=== PATIENT | female | born 1955 | race Caucasian/White ===

== ENCOUNTER 2018-04-18 19:05 | Inpatient (IN) | payer MEDICARE ==
[~2018-04-18] VITALS: Ht 167.6 cm; Wt 99.8 kg
[2018-04-18] MEDS ORDERED: LORAZEPAM 2 MG/1 ML VIAL ONE (19:24)
[2018-04-18] MEDS ORDERED: OLANZAPINE 10 MG VIAL IM ONE ×2 (19:24→19:30)
[2018-04-18] MEDS ORDERED: LORAZEPAM 2 MG/1 ML VIAL IM ONE (19:30)
--- NOTE | 2018-04-18 19:34 | NUR ---
PT BIB PRIVATE AMBULANCE FROM [facility] FOR REHAB MEDICINE ER. PT IS ON 5150 HOLD FOR DTO. PT SELF-AMBULATED TO BED WITHOUT DIFFICULTY. PT DOES NOT APPEAR TO BE IN ANY ACUTE DISTRESS. PT REFUSING VS CHECK, LAB DRAW, BEING NONCOMPLIANT AND AGITATED.
--- NOTE | 2018-04-18 19:35 | NUR ---
PT MEDICATED ORDERED BY . PT STILL AGITATED AND YELLING, BUT COOPERATING. WILL CONTINUE TO MONITOR.
[2018-04-18] MEDS ORDERED: RISP1TAB7 PO (19:40)
[2018-04-18 19:58] LABS: CREATININE 0.8 mg/dL (0.6-1.3); POTASSIUM 3.4 mmol/L (3.5-5.1)
--- NOTE | 2018-04-18 20:30 | NUR ---
GAVE ADMITTING REPORT TO U BOB. PT WILL BE ADMITTED UNDER THE CARE OF DR. SANCHEZ/PRATEEK. Addendum: 04/18/18 at 2054 by MANUELITO REPORT GIVEN TO BOB FOLEY.
--- NOTE | 2018-04-18 20:50 | NUR ---
PT WAS BROUGHT IN TO UNIT VIA WHEELCHAIR. ADMITTED TO U UNDER DR. CHANDRA/ DR. ZENG. A/O X2. INITIATE ADMISSION ASSESSMENT. UNABLE TO OBTAIN MOST INFORMATIONS DUE TO PT IS VERY NON COOPERATIVE. PT REFUSED SKIN CHECK, REFUSED TO SIGN ADMISSION PAPER WORKS. EASILY IRRITABLE WHEN BEING ASKED BY STAFF. DR. CHANDRA WAS HERE WITH NEW ORDERS. BELONGING LISTS REVIEWED. Addendum: 04/18/18 at 2338 by DAMIAN GALLARDO RN PT REFUSED V/S TO BE TAKEN. NON COMPLIANT.
[2018-04-18] MEDS ORDERED: TEMAZEPAM 7.5 MG CAPSULE PO PRN (21:30)
[2018-04-18] MEDS ORDERED: ACETAMINOPHEN 325 MG TABLET PO PRN (21:30)
[2018-04-18] MEDS ORDERED: MAGNESIUM HYDROXIDE 30 ML LIQUID UDC PO PRN (21:30)
[2018-04-18] MEDS ORDERED: MAG HYDROX/AL HYDROX/SIMETH 30 ML LIQUID UDC PO PRN (21:30)
--- NOTE | 2018-04-19 06:45 | NUR ---
PT SLEPT 8.0 HRS. STAYED IN SECLUSION ROOM, PT DID NOT WANT TO STAY IN HER ROOM LAST NIGHT. HAD SHOWER IN AM. AMBULATORY. IN ACTIVITY ROOM AT THIS TIME. PT GETS IRRITATED WHEN ASKED, GETS MAD EASILY. MONITORED CLOSELY.
--- NOTE | 2018-04-19 11:50 | NUR ---
Firearms Report: Vending Machine Mechanic completed and submitted [employer] Firearms Report for 5150 DTO certification.
[2018-04-19] MEDS: DIVALPROEX 250 MG TABLET.DR PO SCH ×2 (13:00→17:00)
[2018-04-19] MEDS: risperiDONE 1 MG TABLET PO SCH ×2 (13:16→20:49)
[2018-04-19] MEDS ORDERED: LORAZEPAM 2 MG/1 ML VIAL IM ONE (23:20)
[2018-04-19] MEDS ORDERED: HALOPERIDOL LACTATE 5 MG/1 ML VIAL IM ONE (23:20)
[2018-04-19] MEDS ORDERED: diphenhydrAMINE 50 MG/1 ML VIAL IM ONE (23:20)
--- NOTE | 2018-04-20 01:30 | NUR ---
Pt WAS BEING INTRUSIVE, AGITATED, ATTENTION SEEKING, CONSTANTLY NEEDING REDIRECTION, BECAME VERBALLY ABUSIVE AND THREATENING TO STAFF WHEN HER DEMANDS WERE NOT MET. MULTIPLE NON-PHARMACOLOGICAL INTERVENTIONS ATTEMPTED BUT WERE UNSUCCESSFUL. DR. CHANRDA WAS CALLED AND NOTIFIED OF Pt BEHAVIOR, RECEIVED ONE TIME ORDER OF HALDOL 5 MG IM, ATIVAN 2 MG IM, AND BENADRYL 25 MG IM. UNIT STAFF AND HOSPITAL SECURITY WERE PRESENT AND ASSISTED DURING INJECTION ADMINISTRATION. CHEMICAL RESTRAINT PROTOCOL WAS INITIATED, Pt WAS MONITORED CLOSELY FOR SAFETY. Pt CONTINUED TO BE BELLIGERENT AND VERBALLY ABUSIVE AFTER IM INJECTION. Pt CAME TO NURSING STATION MULTIPLE TIMES BEING INTRUSIVE WHEN NURSE WAS ATTENDING TO ANOTHER Pt. CONSTANT REDIRECTION WAS NEEDED FOR 30 MINUTES, Pt WAS PROVIDED A SANDWICH, REFUSED VITAL SIGNS. Pt WENT TO BED AFTER FINISHING SNACK. IN STABLE CONDITION, NO DISTRESS NOTED. Pt IS NOW SLEEPING AND RESTING COMFORTABLY. WILL CONTINUE TO MONITOR Pt BEHAVIOR CLOSELY TO AVOID ESCALATION AND INJURY.
[2018-04-20 07:30] VITALS: BP 169/101
[2018-04-20] MEDS: DIVALPROEX 250 MG TABLET.DR PO SCH ×3 (09:00→17:00)
[2018-04-20] MEDS: risperiDONE 1 MG TABLET PO SCH ×2 (11:44→20:39)
--- NOTE | 2018-04-20 16:06 | NUR ---
Initial Discharge Note: Patient currently lives alone in a [address] [place] [address]] that is owned by her parents. Patient states she does not want to go back there because her "landlord" is going to kick her out. Patient also states that her complex is a "drug ring". Patient, however, appears to not be suitable to live on her own at this time and would need appropriate placement. Patient has no Medicare SNF days left. area field worker has spoke with Josephine [[phone]], at [facility], who states that transferring the patient to [facility] may be an option. area field worker will coordinate with Josephine once patient is on a 5250 hold and see if lateral transfer is possible. Patient salesperson flowers(s) is/are Juan Jose Leonardo [[phone]], patients parents.
[2018-04-21] MEDS: risperiDONE 1 MG TABLET PO SCH ×2 (08:59→21:00)
[2018-04-21] MEDS: DIVALPROEX 250 MG TABLET.DR PO SCH ×3 (09:00→17:00)
[2018-04-21] MEDS ORDERED: CLONIDINE HCL 0.1 MG TABLET PO PRN (13:30)
[2018-04-21] MEDS ORDERED: OLANZAPINE 10 MG VIAL IM ONE ×2 (20:00→20:45)
--- NOTE | 2018-04-21 20:55 | NUR ---
GPS: PATIENT IS OUT OF CONTROL. YELLING AT STAFF. BANGING ON THE DOOR. MD CALLED. ZYPREXA 5 MG IM X1 GIVEN FOR OUT OF CONTROL BEHAVIOR. CONTINUE MONITORING FOR SAFETY.
--- NOTE | 2018-04-21 22:00 | NUR ---
CHEMICAL RESTRAINT NOTE: Pt UNCOOPERATIVE, ARGUMENTATIVE, OPPOSITIONAL, YELLING, SCREAMING, AND THREATENING STAFF. DR HOLLINGSWORTH NOTIFIED OF Pt BEHAVIOR AND ORDERED ZYPREXA 5mg IM. Pt WAS THEN RESPONDED TO REDIRECTION AND CALMED FOR ABOUT 45 MINUTES. INITIAL ORDER WAS CANCELLED. AFTER 45 MINUTES, THE Pt BECAME VERBALLY ABUSIVE TOWARD STAFF, AND YELLING OBSCENITIES. ORDER WAS RE-STARTED AND INITIATED @ 2045. SECURITY WAS CALLED FOR STAND BY TMD TEACHER, HOWEVER Pt WAS COOPERATIVE WITH IM PROCESS, NO HANDS ON BY ANCILLARY STAFF DURING IM ADMINISTRATION. Pt NOW CALM AND RESTING AT THIS TIME, IN NO ACUTE PHYSICAL DISTRESS. WILL CONTINUE TO CLOSELY MONITOR.
--- NOTE | 2018-04-22 05:56 | NUR ---
GPS: REMAIN UNCOOPERATIVE THROUGH THE SHIFT. ZYPREXA 5 MG IM GIVEN AND EFFECTIVE. SLEPT 4:30 HRS THROUGH THE NIGHT. CONTINUE MONITORING FOR SAFETY.
[2018-04-22] MEDS: risperiDONE 1 MG TABLET PO SCH ×3 (08:52→20:25)
[2018-04-22] MEDS: DIVALPROEX 250 MG TABLET.DR PO SCH ×3 (08:53→16:40)
--- NOTE | 2018-04-22 08:58 | NUR ---
NURSING: PATIENT TOOK ONLY 1 TABLET OF RISPERDAL OUT OF 3 MGX AND REFUSED DEPAKOTE
--- NOTE | 2018-04-22 13:37 | NUR ---
GPS: Nursing Notes: Thought Disorder: Patient is awake and responding to her name, poor anger management, resistant with nursing care, refusing her medications, taking only Risperdal 1mg PO and not taking the full dose of Risperdal 3mg, when questioned by staff, patient cover her ears and became agitated toward staff, "Get away..", responding to internal stimuli by mumbling to self, unable to formulate a plan for self care, continue with treatment plan.
--- NOTE | 2018-04-22 21:14 | NUR ---
Received pt to care, she was laying in her bed rambling, responding to internal stimuli, pt is labile, uncooperative, attention seeking, loud, guarded, pt refused a snack, pt also refused to take her risperidone 3 mg (1 mg per pill), she would only take 1 pill which was 1 mg, pt states that it is what she takes at home. Pt is still very psychotic. I will continue to monitor.
--- NOTE | 2018-04-23 06:18 | NUR ---
Pt did not sleep all night, pt was erratic, talking to herself, hyperverbal, pacing, aggressive, yelling, responding to internal stimuli, labile, belligerent, name calling, refused medication, refused to shower, pt states that she is not schizophrenic, pt refused her labs this morning. Pt is still highly psychotic.
[2018-04-23] MEDS: risperiDONE 1 MG TABLET PO SCH ×2 (08:24→21:00)
[2018-04-23] MEDS: DIVALPROEX 250 MG TABLET.DR PO SCH ×3 (08:24→16:02)
--- NOTE | 2018-04-23 15:53 | NUR ---
GPS: Nursing Notes: Thought Disorder: Patient is awake and responding to her name, unpredictable behavior, poor anger management, responding to internal stimuli by shouting and mumbling to self, verbal abusive toward staff, overly disruptive by shouting in the TV room, invading personal space of staff and security, stating "What a fuck are going to do... 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
--- NOTE | 2018-04-23 18:45 | NUR ---
GPS: Nursing Notes: Severe Agitation: Patient is irritable, labile, unpredictable behavior, overly disruptive by shouting, verbal abusive, threatening staff, stating racial statements toward staff, slamming door, closing her door, verbal abusive toward her roommate, "Fuck you Malian... Get your dave away from me..", loud and angry affect, labile, unable to be redirected, restless, security was call, patient scratched staff on the left arm, trying to hit staff, Dr. Purcell covering psychiatrist for Dr. Faria was called, continue to monitor patient for safety, continue with treatment plan.
[2018-04-23] MEDS ORDERED: OLANZAPINE 10 MG VIAL IM ONE (19:05)
--- NOTE | 2018-04-23 20:00 | NUR ---
CHEMICAL RESTRAINT NOTE: RECEIVED REPORT FROM DAY SHIFT NURSE, JUSTIN, TO ADMINISTER ZYPREXA 5 MG IM INJECTION PER DR. HOLLINGSWORTH'S ORDER. Pt HAS BEEN VERBALLY ABUSIVE AND THREATENING STAFF, STATING RACIAL STATEMENTS, SLAMMING DOOR, LABILE, LOUD, AND ANGRY. UPON ASSESSMENT, Pt CONTINUES TO BE AGITATED, CURSING AND YELLING AT NURSE, STATING, "GO FUCK YOURSELF" TO NURSE WHILE NURSE INTRODUCED HIMSELF TO PATIENT. IM INJECTION ADMINISTERED WITH ASSISTANCE FROM OTHER NURSING STAFF AND SECURITY. CHEMICAL RESTRAINT PROTOCOL AND MONITORING HAS BEEN INITIATED, WILL CONTINUE TO MONITOR Pt BEHAVIOR CLOSELY.
[2018-04-24] MEDS ORDERED: LORAZEPAM 2 MG/1 ML VIAL IM ONE (01:35)
[2018-04-24] MEDS ORDERED: HALOPERIDOL LACTATE 5 MG/1 ML VIAL IM ONE (01:35)
[2018-04-24] MEDS ORDERED: diphenhydrAMINE 50 MG/1 ML VIAL IM ONE (01:35)
--- NOTE | 2018-04-24 04:00 | NUR ---
CHEMICAL RESTRAINT NOTE: PREVIOUS IM INJECTION WAS NOT EFFECTIVE. Pt CONTINUED TO BE AGGRESSIVE, AGITATED, LABILE, VERBALLY ABUSIVE AND THREATENING TO STAFF AND OTHER PATIENTS. UNABLE TO BE REDIRECTED BY NURSING STAFF, CONSTANTLY COMING UP TO NURSING STATION DEMANDING FOR "A BIGGER SHOT THAT WILL KNOCK ME OUT. GIVE ME FENTANYL OR PROPOFOL. CALL THE DOCTOR NOW, RAPHAEL." Pt WAS INFORMED THAT FENTANYL AND PROPOFOL WILL NOT BE ORDERED AND SHE WILL NOT BE RECEIVING THESE TONIGHT. Pt BEGAN YELLING AT OTHER PATIENTS IN THE ROOM NEXT TO HER AND SLAMMING THE DOORS. AT 0130, DR. HOLLINGSWORTH, ON-CALL PSYCHIATRIST COVERING FOR DR. CHANDRA, WAS CALLED AND NOTIFIED OF Pt BEHAVIOR AND RECOMMENDATION. RECEIVED ORDER FOR HALDOL 5 MG, ATIVAN 1 MG, AND BENADRYL 25 MG, IM INJECTIONS ONCE. SECURITY WAS CALLED FOR ASSISTANCE WITH IM INJECTION. Pt WAS INITIALLY RECEPTIVE TO IM INJECTION BUT BECAME AGITATED PRISON THROUGH IM ADMINISTRATION WHICH REQUIRED HANDS-ON INTERVENTION BY NURSING STAFF AND SECURITY TO PREVENT INJURY TO PATIENT AND STAFF. CHEMICAL RESTRAINT PROTOCOL AND MONITORING INITIATED, Pt CONTINUED TO BE AGITATED, VERBALLY ABUSIVE AND THREATENING AFTER RECEIVING THE SHOT BUT HAS NOT BEEN OUT OF HER ROOM OR BED. Pt FELL ASLEEP AROUND 0330, NO DISTRESS NOTED, Pt IN STABLE CONDITION. WILL CONTINUE TO MONITOR Pt BEHAVIOR CLOSELY.
[2018-04-24] MEDS: risperiDONE 1 MG TABLET PO SCH ×2 (09:00→11:27)
[2018-04-24] MEDS: DIVALPROEX 250 MG TABLET.DR PO SCH ×3 (09:00→16:31)
--- NOTE | 2018-04-24 09:30 | NUR ---
GPS Nursing note: pt. refused partially resperidol, only took 1 mg this AM. Addendum: 04/24/18 at 1130 by KANG REEVES RN per pt. preference stated "I only need 1 mg, i don't need 3 mg."
--- NOTE | 2018-04-24 10:26 | NUR ---
Discharge Planning: oyster bed worker followed-up with Josephine [[phone]], family service caseworker, at [facility] who offered assistance in transferring [facility] to [facility] in [place] where patient could receive more extensive psychiatric treatment. Per Josephine, she cannot guarantee when and if a female bed becomes available, but she requested patient packet be faxed [[phone]] to her for review. oyster bed worker faxed patient packet. oyster bed worker also received return phone call from Azeb [[phone]], [facility] health social work professor. Azeb has been working with patient and patient's family for a few months. Azeb requested to send initial paperwork for conservatorship, however, health social work professor explained that [facility] does not start the conservatorship process due to time restraints. oyster bed worker will inform Azeb of if and when patient is transferred to [facility].
--- NOTE | 2018-04-24 12:17 | NUR ---
Discharge Planning: castables worker received phone call from Oscar [[phone]], client coordinator for GPS, at [facility] who states that she has spoken with Topher at [facility] mobile crisis team who has agreed to take responsibility for providing transportation (via [facility] Crisis Team) for the patient when she is ready to discharge. castables worker will continue to update Oscar as needed on the status of patient discharge plan.
--- NOTE | 2018-04-24 14:51 | NUR ---
GPS: Nursing Notes: Severe Agitation: Patient overly disruptive by constantly shouting, verbal abusive toward staff, shouting racial statements, "You are a fucking nigger maid..", threatening the psychiatrist, restless behavior, unable to be redirected, "Bastard..I am going to kill you..", loud and pressured speech, poor anger management, clinching her fists toward staff, banging on the nursing station, redirected during shift, but unable to follow directions, "You bastard Romanian....", constantly screaming, Dr. Faria is present during aggressive behavior, order: Haldol 5mg IM, Ativan 2mg IM and Benadryl 25mg IM X1 STAT, respiration is 18, continue to monitor for safety, continue with treatment plan.
[2018-04-24] MEDS ORDERED: diphenhydrAMINE 50 MG/1 ML VIAL IM STA (14:57)
[2018-04-24] MEDS ORDERED: LORAZEPAM 2 MG/1 ML VIAL IM STA (14:57)
[2018-04-24] MEDS ORDERED: HALOPERIDOL LACTATE 5 MG/1 ML VIAL IM STA (14:57)
--- NOTE | 2018-04-24 15:19 | NUR ---
GPS: Nursing Notes: Chemical Restraint: Patient continue to be unpredictable, labile, constantly shouting, verbal abusive, using profanities, toward staff and psychiatrist, using racial statement toward staff, overly disruptive by shouting, screaming to unseen others, threatening staff, banging on the nursing station, setting limits, but continue to unable to be redirected, restless behavior, Dr. Faria ordered: Haldol 5mg IM, Ativan 2mg IM and Benadryl 25mg IM X1 STAT, continue to monitor for safety, continue with treatment plan.
--- NOTE | 2018-04-24 15:45 | NUR ---
GPS: Nursing Notes: Reassessment of Chemical Restraint: Patient continue be shouting profanities to unseen others, poor anger management, gets easily irritable when redirected, using racial statements toward staff, IM medications were helpful, patient shouting, but with less intensity, respiration is 18, continue to monitor for safety, continue with treatment plan.
[2018-04-25] MEDS: DIVALPROEX 250 MG TABLET.DR PO SCH ×3 (08:37→17:00)
[2018-04-25] MEDS: risperiDONE 1 MG TABLET PO SCH (08:38)
[2018-04-25] MEDS: BENZTROPINE MESYLATE 1 MG TABLET PO SCH (17:00)
[2018-04-25] MEDS: HALOPERIDOL 5 MG TABLET PO SCH (17:00)
[2018-04-25] MEDS ORDERED: HALOPERIDOL LACTATE 5 MG/1 ML VIAL IM PRN (17:00)
[2018-04-25] MEDS ORDERED: BENZTROPINE MESYLATE 2 MG/2 ML AMPUL IM PRN (17:00)
[2018-04-25] MEDS: TEMAZEPAM 15 MG CAPSULE PO PRN (22:50)
[2018-04-26 07:30] VITALS: BP 155/110
[2018-04-26] MEDS: HALOPERIDOL 5 MG TABLET PO SCH ×3 (09:10→18:11)
[2018-04-26] MEDS: BENZTROPINE MESYLATE 1 MG TABLET PO SCH ×3 (09:10→18:12)
[2018-04-26] MEDS: DIVALPROEX 250 MG TABLET.DR PO SCH ×3 (09:10→18:10)
--- NOTE | 2018-04-26 11:08 | NUR ---
Discharge Planning: structural steel ironworker attempted to follow up with Josephine [[phone]], child welfare caseworker, at [facility] to check-in about potential transfer of patient to [facility]. structural steel ironworker was unable to reach Josephine and left a voicemail requesting call back.
--- NOTE | 2018-04-26 15:30 | NUR ---
Activity Group Note: Patients were asked to draw a picture of Fall and to join in discussion of what Fall means to them or any memories they may have of the Fall season. Subjective: "Let me see your picture. Hold it up!" [Patient made this statement to another peer in group] Objective: Patient was very eager to participate in activity and appeared to enjoy herself and company of peers. Patient engaged well with peers and provided encouragement to others on what they were drawing. Patient would become irritated when other staff walked in room and call out "that's rude". Assessment: Patient needs help with self-soothing exercises when unable to control surroundings. Plan: Encourage group attendance as scheduled. shop worker will continue to provide encouragement and support in helping patient engage in self-soothing strategies when needed.
--- NOTE | 2018-04-27 01:45 | NUR ---
GPS: Remains awake at this time. Refused Restoril 15mg PO when offered for insomnia. Pt.is quiet and inside her room at this time. Quiet environment provided to facilitate sleep. No agitation noted. Safety emphasized.
[2018-04-27] MEDS: HALOPERIDOL 5 MG TABLET PO SCH ×3 (08:29→17:09)
[2018-04-27] MEDS: DIVALPROEX 250 MG TABLET.DR PO SCH ×4 (08:40→17:10)
[2018-04-27] MEDS: BENZTROPINE MESYLATE 1 MG TABLET PO SCH ×4 (08:40→17:09)
[2018-04-27] MEDS ORDERED: HALOPERIDOL 5 MG TABLET PO SCH (21:00)
[2018-04-27] MEDS ORDERED: HALOPERIDOL LACTATE 5 MG/1 ML VIAL IM SCH (21:00)
--- NOTE | 2018-04-28 06:19 | NUR ---
GPS: Pt.now awake in the tv room at this time. Continues to be loud at times,easily agitated,intrusive and with disorganized thoughts. Limit setting provided prn. Safety emphasized. Will continue to monitor.
[2018-04-28] MEDS ORDERED: HALOPERIDOL LACTATE 5 MG/1 ML VIAL IM SCH (09:00)
[2018-04-28] MEDS ORDERED: BENZTROPINE MESYLATE 1 MG TABLET PO SCH (09:00)
[2018-04-28] MEDS ORDERED: HALOPERIDOL 5 MG TABLET PO SCH ×2 (09:00→13:00)
[2018-04-28] MEDS: DIVALPROEX 250 MG TABLET.DR PO SCH ×3 (09:00→17:00)
[2018-04-28] MEDS ORDERED: BENZTROPINE MESYLATE 2 MG/2 ML AMPUL IM SCH (09:00)
[2018-04-28] MEDS ORDERED: BENZTROPINE MESYLATE 2 MG/2 ML AMPUL IM PRN (12:10)
[2018-04-28] MEDS ORDERED: HALOPERIDOL LACTATE 5 MG/1 ML VIAL IM PRN ×2 (12:12→12:13)
[2018-04-28] MEDS: BENZTROPINE MESYLATE 1 MG TABLET PO SCH ×2 (13:29→18:24)
--- NOTE | 2018-04-28 16:12 | NUR ---
Activity Group Note: GOAL: Patient will actively participate in the group activity of the day or relax in the activity room with fellow patients. INTERVENTION: Professor Of Vegetable Science invited patient to participant in the arts and craft group activity held at 2 -2:45 pm in the activity room. RESPONSE: Patient expressed interest in participating in arts and crafts. Patient worked and competed her mask that she had been painting during the entire 45-minute time frame. Patient had minimal interaction with peers and did well. Patient stated that she wished she could paint all day because she enjoys it so much. Patients mood was somewhat labile but overall very cooperative during the activity. PLAN: Patient stated that she enjoys arts and crafts and would like to keep participating when possible. marketing information coordinator will invite patient to attend the next group activity that is held.
[2018-04-28] MEDS: VALPROIC ACID 250 MG/5 ML LIQUID UDC PO SCH (20:52)
--- NOTE | 2018-04-29 02:52 | NUR ---
Received pt to care. Pt up walking around, rolling her eyes, arguing with the doctor, name calling and demeaning him, pt later went to sit in the day room and she was quiet listening to music, pt asked for cranberry juice, conventional mortgage underwriter poured liquid med in her drink per MD instructions but pt was suspicious and refused to drink the juice and poured it in the sink. Pt states "I know all your tricks". Pt still hyperverbal and responding to internal stimuli. I will continue to monitor.
[2018-04-29] MEDS: HALOPERIDOL 5 MG TABLET PO SCH ×3 (08:32→21:20)
--- NOTE | 2018-04-29 08:35 | NUR ---
Gps/Aircraft Cylinder Mechanic-Refused automatic blood pressure, requesting be b/p checked manually, was 180/104 left arm, offered to take clonidine 0.1 mg po 1 tab. pt. claimed she will not take any blood pressure mediciations, reviewed with patient meds. and importance of being compliance with her meds. staff are here to take care of her ,help in her recovery.Patient laughing ,mocking at the staff ,rudeness noted. Continue to monitor behavior .
[2018-04-29] MEDS: VALPROIC ACID 250 MG/5 ML LIQUID UDC PO SCH ×2 (09:00→21:00)
[2018-04-29] MEDS ORDERED: HALOPERIDOL LACTATE 5 MG/1 ML VIAL IM PRN (09:00)
--- NOTE | 2018-04-29 15:38 | NUR ---
Gps/Property Inspector- Patient kept refusing to have them check her blood pressure , informed patient the need to have her vital signs checks , r/t to her elevated b/p also refusing to take prn b/p meds. pt. educ. re- blood pressure, refused to listen, mocking staff .
--- NOTE | 2018-04-29 15:48 | NUR ---
Gps/Despatching And Receiving Clerk- Noted patient door is closed, instructed patient not to closed her door, she claimed one of the staff here smells and she cannot stand it, making faces pretending gagging . Re offered to have her blood pressure check, refused , stated" go back to [place] where you belong".
[2018-04-29] MEDS: LORAZEPAM 1 MG TABLET PO PRN (19:49)
--- NOTE | 2018-04-30 05:35 | NUR ---
Received pt to care, pt was laying in bed, when I said hello to the pt she was short and dismissive. Pt noted responding to internal stimuli, Pt yelling and talking to herself. Pt given PRN ativan, pt complied with taking the med. Pt also complied with taking haldol, pt refused depakote liquid saying that "it is for people with migraines", marketing writer tried to explain the med to the pt but she did not want to discuss. Pt slept most of the night.
[2018-04-30] MEDS: VALPROIC ACID 250 MG/5 ML LIQUID UDC PO SCH ×2 (08:40→21:00)
[2018-04-30] MEDS: HALOPERIDOL 5 MG TABLET PO SCH ×3 (08:40→21:15)
--- NOTE | 2018-04-30 08:47 | NUR ---
Gps/Letter Of Credit Document Examiner- Patient upset when awaken to for medication administration, continue mocking staff, making faces and weird sounds ,loud , noted patient talking to self . Suspicious, refusing to get water from a cup. Refusing depakene , claimed she does not need it and will not take it, claimed she does not have seizure, informed other indications of the med. claimed she does not want to hear .Instructed to keep her door open.
[2018-04-30] MEDS: TEMAZEPAM 15 MG CAPSULE PO PRN (23:12)
[2018-05-01] MEDS: VALPROIC ACID 250 MG/5 ML LIQUID UDC PO SCH (09:00)
[2018-05-01] MEDS: HALOPERIDOL 5 MG TABLET PO SCH ×2 (09:44→14:41)
--- NOTE | 2018-05-01 10:45 | NUR ---
Discharge Planning Note: Spoke with Josephine at [facility] ([phone]) to discuss discharge planning. Per Josephine, there is not bed availability at the [facility] for the patient today. Josephine stated she is attempting every day to transfer the patient there. Josephine aware that if no placement can be found, the patient will return to her home. KUN and Josephine agreed to discuss DC planning again tomorrow (05/01/18).
--- NOTE | 2018-05-01 15:25 | NUR ---
Discharge Planning Note: production worker called and spoke with patients parents, Kristy & Rajiv Leonardo [[phone]], to provide them with an update on patients progress. Patient's mother expressed great concern of patient returning to her condo, stating that the neighbors do not want her their and that they are unable to manage her. production worker assured patient's parents that patient would be stabilized once ready to discharge. production worker will continue to plan a safe and proper discharge.
[2018-05-01] MEDS: LORAZEPAM 1 MG TABLET PO PRN (17:23)
[2018-05-01] MEDS ORDERED: HALOPERIDOL DECANOATE 50 MG/1 ML AMPUL IM ONE (19:45)
[2018-05-01] MEDS: DIVALPROEX 500 MG TABLET.DR PO SCH (20:40)
[2018-05-01] MEDS ORDERED: HALOPERIDOL LACTATE 10 MG/5 ML ORAL SOLUTION UDC PO SCH (21:00)
--- NOTE | 2018-05-01 23:04 | NUR ---
RECEIVED PATIENT IN HER ROOM AND WAS NOTED TALKING TO SELF.HOSTILE TO STAFF UPON INTERACTION AND WAS VERY SUSPICIOUS WHEN GIVEN HER MEDS WITH A CUP OF WATER. REFUSED HER MEDS SO THE DEPAKOTE WAS CHANGED TO TAB FROM LIQUID BUT SHE FLATLY REFUSED THE HALDOL. IM HALDOL 10MG WAS GIVEN WITH FAIRLY GOOD EFFECT.SHE APPEARS TO BE RESPONDING TO INTERNAL STIMULI SHE OCCASIONALLY DROPS VULGAR WORDS IN HER SPEECH. 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
--- NOTE | 2018-05-02 07:00 | NUR ---
SLEPT INTERMITTENTLY FOR 5;30HRS.
[2018-05-02] MEDS ORDERED: HALOPERIDOL DECANOATE 50 MG/1 ML AMPUL IM ONE (08:00)
[2018-05-02] MEDS: DIVALPROEX 500 MG TABLET.DR PO SCH ×2 (09:53→20:38)
[2018-05-02] MEDS: HALOPERIDOL 2 MG TABLET PO SCH ×3 (09:53→20:39)
--- NOTE | 2018-05-02 14:54 | NUR ---
Discharge Planning Note: Spoke with Josephine at [facility] ([phone]) to discuss discharge planning. Per Josephine, there is not bed availability at the [facility] for the patient again today. Josephine stated she is still attempting every day to transfer the patient there. Josephine aware that if no placement can be found, the patient will return to her home. KUN and Josephine agreed to discuss DC planning again daily.
[2018-05-02] MEDS: HYDROCORTISONE 0.5% CREAM 28.35 GM TUBE TOP SCH (20:53)
--- NOTE | 2018-05-03 06:43 | NUR ---
PT REFUSED TO LET US HAVE A URINE SAMPLE FROM HER. PT REFUSED FOR THE FITTING ROOM MAINTENANCE MECHANIC TO GET HER BLOOD.PT CURSING AT STAFF. CHARGE NURSE AWARE.
--- NOTE | 2018-05-03 06:44 | NUR ---
PT SLEPT 8.3 HOURS. PT SHOWS NO SIGNS OF DISTRESS. PRESCRIBED MEDICATION GIVEN AND PT TOLERATED IT WELL.PT ANXIOUS, EASILY AGITATED. PT SPEAKING MEAN WORDS TO STAFF IF SOMETHING DOESN'T GO IN HER WAY. SAFETY AND COMFORT PROVIDED. WILL ENDORSE TO DAYSCOFT NURSE FOR CONTINUITY OF CARE.
[2018-05-03] MEDS: DIVALPROEX 500 MG TABLET.DR PO SCH ×2 (08:43→20:18)
[2018-05-03] MEDS: HALOPERIDOL 2 MG TABLET PO SCH (08:43)
[2018-05-03] MEDS: HYDROCORTISONE 0.5% CREAM 28.35 GM TUBE TOP SCH ×2 (08:44→20:20)
[2018-05-03] MEDS ORDERED: HALOPERIDOL LACTATE 10 MG/5 ML ORAL SOLUTION UDC PO SCH ×2 (13:12→13:30)
[2018-05-03] MEDS ORDERED: HALOPERIDOL 5 MG TABLET PO SCH (13:32)
[2018-05-03] MEDS ORDERED: HALOPERIDOL 5 MG TABLET PO ONE (14:00)
--- NOTE | 2018-05-03 16:15 | NUR ---
Activity Group Note: Patients engaged in listening to music of their choice while coloring a picture print available to them. Patients were asked to engage with their peers to discuss the music or their pictures. Subjective: "I have always loved art...put a blank paper in front of me, and BOOM." Objective: The patient seemed disinterested in the group when first presented to her. However, patient chose 3 pages she wanted to color, and seemed engaged in the activity. Patient initiated conversation with her peers. Patient did exhibit episodes of irritability when her peers asked to turn down the music. Assessment: Patient has made improvements in coping skills and needs encouragement and support to develop them further. Plan: Encourage group attendance as scheduled. Analytical Technician will continue to provide encouragement and support in helping the patient engage in group activities.
[2018-05-03] MEDS: HALOPERIDOL 5 MG TABLET PO SCH (20:17)
[2018-05-04] MEDS: HYDROCORTISONE 0.5% CREAM 28.35 GM TUBE TOP SCH (09:00)
[2018-05-04] MEDS: DIVALPROEX 500 MG TABLET.DR PO SCH (09:07)
[2018-05-04] MEDS: HALOPERIDOL 5 MG TABLET PO SCH ×2 (09:07→12:47)
--- NOTE | 2018-05-04 11:30 | NUR ---
AFFINITY DELIVERY CLERK ([facility] [phone]) CALLED ME REGARDING PTS TRANSPORTATION. STATES THET HAVE A [employer] ADMINISTRATOR IN OUR AREA AND THEY WANT TO PICK PT UP SOON, CONFIRMED PT WOULD BE READY FOR DISCHARGE BY THEN. [facility] STATED HE COULD NOT GET [facility] FOR PT DROP OFF ADDRESS, I GAVE HIM THE PTS DROP OFF ADDRESS PER OUR SOCIAL WORKERS DISCHARGE NOTE ([address] [place] [id number] [address] [place] [address]) AND CONFORMED WITH KUN WIRGHT THAT WAS THE CORRECT INFO.
--- NOTE | 2018-05-04 11:30 | NUR ---
Discharge Note: Patient will be discharged back to home [[address] [place] [address] [address] [place] [address]; #: [phone]] where she lives alone. Transportation will be provided by [facility] about noon and it was arranged by Josephine [[phone]]. connection worker called and spoke with Kristy Leonardo, patients mother, informing her of patient discharge and she is agreeable with discharge plan. Patient is alert and oriented x3 and denies any SI/HI. Patient was briefed on discharge and aware and agreeable to plan. Patient will follow-up with Dr. Frost [[phone]], psychiatrist, on May 12, 2018. Patient currently does not have a primary care physician and refused to be referred to one. Patient was offered home health services but refused. connection worker called patients APS worker, Azeb [[phone]], requesting that she provide a wellness check to patient. Patient was given outpatient mental health resources including [facility] [[phone]], [facility] [[phone]], [facility] [[phone], and National Suicide Prevention [facility]eline [ ].
--- NOTE | 2018-05-04 14:00 | NUR ---
1220 Discharged instructions given to patient regarding medications to continue at home-patient verbalized understanding. Prescription faxed to [facility] where patient live closed by and confirmed received. 1300 Patient discharged home by [facility], patient alert and ox3, denies SI/HI. No delusion. No a/v hallucination noted.
== END 2018-05-04 13:00 | disposition home or self-care (01) | DRG 885 ==
LOC: ER 19:08 → GPS 20:34
PROVIDERS: ADMIT Psychiatry & Neurology Psychiatry; ATTEND Nurse Practitioner Acute Care
DX: F25.0 Schizoaffective disorder, bipolar type (principal); E87.0 Hyperosmolality and hypernatremia; D63.8 Anemia in other chronic diseases classified elsewhere; E66.9 Obesity, unspecified; Z68.35 Body mass index [BMI] 35.0-35.9, adult; Z71.3 Dietary counseling and surveillance; Z91.19 Patient's noncompliance with other medical treatment and regimen; E87.6 Hypokalemia; I10 Essential (primary) hypertension
CPT/HCPCS: 36415; 93005; A4663; J0515; J1200; J1630; J1631; J2060; J2358; J3490